=== PATIENT | female | born 1940 | race Asian ===

== ENCOUNTER → 2017-04-04 | Outpatient (CLI) | payer MEDICARE, OTHER ==
[~2017-04-04] MED LIST: ASPI-556 PO; CALC1TAB15 PO; DONE10TA43 PO; METF10002 PO; MULT1TAB70 PO; NIFE-4 PO; SIMV10TA6 PO; TELM1TAB6 PO
== END | disposition home or self-care (01) ==
LOC: RADPV 09:34
PROVIDERS: ATTEND Internal Medicine
DX: J98.11 Atelectasis (principal); I70.0 Atherosclerosis of aorta; M19.011 Primary osteoarthritis, right shoulder; M25.811 Other specified joint disorders, right shoulder
CPT/HCPCS: 71020

== ENCOUNTER → 2017-04-08 | Outpatient (CLI) | payer MEDICARE, OTHER | END | disposition home or self-care (01) | LOC: RADPV 07:59 | PROVIDERS: ATTEND Internal Medicine | DX: K80.20 Calculus of gallbladder without cholecystitis without obstruction (principal); K80.80 Other cholelithiasis without obstruction | CPT/HCPCS: 76700 ==

== ENCOUNTER → 2017-06-20 | Outpatient (CLI) | payer MEDICARE, OTHER | END | disposition home or self-care (01) | LOC: RADPV 11:01 | PROVIDERS: ATTEND Internal Medicine | DX: M25.812 Other specified joint disorders, left shoulder (principal) ==

== ENCOUNTER 2018-11-27 09:04 | Emergency (ER) | payer MEDICARE, OTHER ==
[~2018-11-27] VITALS: Ht 165.1 cm; Wt 63.6 kg
[~2018-11-27 09:04] MED LIST changes: +METF-446 PO; -METF10002 PO
[2018-11-27] MEDS ORDERED: APIX2.5T PO (09:34)
[2018-11-27] MEDS ORDERED: CLON.5 PO (09:34)
[2018-11-27] MEDS ORDERED: METO25 PO (09:34)
[2018-11-27 12:33] VITALS: BP 110/78
== END 2018-11-27 13:51 | disposition home or self-care (01) ==
LOC: EMS 09:07
DX: F03.90 Unspecified dementia, unspecified severity, without behavioral disturbance, psychotic disturbance, mood disturbance, and anxiety (principal); R45.1 Restlessness and agitation; E11.9 Type 2 diabetes mellitus without complications; E78.00 Pure hypercholesterolemia, unspecified; I10 Essential (primary) hypertension; Z85.038 Personal history of other malignant neoplasm of large intestine; Z79.899 Other long term (current) drug therapy; Z88.0 Allergy status to penicillin

== ENCOUNTER → 2018-12-10 | Outpatient (CLI) | payer MEDICARE, OTHER ==
[~2018-12-10] MED LIST changes: +APIX2.5T PO; +CLON.5 PO; +METO25 PO
== END | disposition home or self-care (01) ==
LOC: RADMN 12:52
PROVIDERS: ATTEND Internal Medicine
DX: I62.00 Nontraumatic subdural hemorrhage, unspecified (principal); I67.82 Cerebral ischemia; I67.2 Cerebral atherosclerosis
CPT/HCPCS: 70450

== ENCOUNTER 2019-01-26 16:38 | Emergency (ER) | payer MEDICARE, OTHER ==
[~2019-01-26] VITALS: Ht 157.5 cm; Wt 68.2 kg
[2019-01-26 17:42] LABS: BASOPHILS % (AUTO) 0.8 % (0.0-2.0); EOSINOPHILS % (AUTO) 0.4 % (1.0-6.0); HEMATOCRIT 34.8 % (36-46); HEMOGLOBIN 11.2 g/dL (12.0-16.0); LYMPHOCYTES # (AUTO) 1.4 K/uL (1.0-4.8); LYMPHOCYTES % (AUTO) 12.9 % (22.0-44.0); MEAN CORPUSCULAR HEMOGLOBIN 30.5 pg (26.0-34.0); MEAN CORPUSCULAR HGB CONC 32.3 G/dL (31.0-37.0); MEAN CORPUSCULAR VOLUME 95 fL (80-100); MONOCYTES % (AUTO) 8.9 % (2.0-9.0); NEUTROPHILS # (AUTO) 8.5 K/uL (1.8-7.7); PLATELET COUNT (AUTO) 336 K/uL (150-450); RED BLOOD CELL COUNT(AUTO) 3.68 MIL/uL (4.00-5.20); RED CELL DISTRIBUTION WIDTH 14.5 % (11.5-14.5)
[2019-01-26 17:54] LABS: CALCIUM, TOTAL 9.1 mg/dL (8.8-10.5); CREATININE 1.01 mg/dL (0.60-1.30); POTASSIUM 3.9 mmol/L (3.5-5.1)
[2019-01-26 17:55] LABS: PROTHROMBIN TIME 10.4 SEC (9.4-11.6)
[2019-01-26 18:00] LABS: GLUCOSE,POINT OF CARE 230 MG/DL (70-110)
[2019-01-26 18:02] LABS: LACTIC ACID 1.8 mmol/L (0.4-2.0)
[2019-01-26 18:20] LABS: ALBUMIN 2.7 g/dL (3.4-5.0); BILIRUBIN,TOTAL 0.7 mg/dL (0.1-1.0); TOTAL PROTEIN, SERUM 7.2 g/dL (6.4-8.2)
[2019-01-26 21:00] VITALS: BP 169/92
[2019-01-26 21:18] LABS: APPEARANCE,URINE CLOUDY (CLEAR); BILIRUBIN,URINE NEGATIVE (NEGATIVE); GLUCOSE, URINE (UA) 500 mg/dL (NEGATIVE); KETONES,URINE NEGATIVE (NEGATIVE); LEUKOCYTE ESTERASE ,URINE MODERATE (NEGATIVE); NITRATE,URINE NEGATIVE (NEGATIVE); OCCULT BLOOD,URINE SMALL (NEGATIVE); PH,URINE 5.5 (5.0-8.0); PROTEIN,URINE NEGATIVE (NEGATIVE); UROBILINOGEN,URINE 0.2 mg/dL (<=1.0)
[2019-01-26 21:30] LABS: BACTERIA,URINE Many /HPF (None Seen); RBC,URINE 0-2 /HPF (0-2); SQUAMOUS EPITHELIAL CELL,UR Few /LPF (None Seen); WBC,URINE >100 /HPF (0-5)
== END 2019-01-26 22:15 | disposition short-term general hospital (02) ==
LOC: EMS 16:39
DX: I62.00 Nontraumatic subdural hemorrhage, unspecified (principal); R50.9 Fever, unspecified; R10.30 Lower abdominal pain, unspecified; E11.9 Type 2 diabetes mellitus without complications; E78.00 Pure hypercholesterolemia, unspecified; I10 Essential (primary) hypertension; F03.90 Unspecified dementia, unspecified severity, without behavioral disturbance, psychotic disturbance, mood disturbance, and anxiety; Z85.038 Personal history of other malignant neoplasm of large intestine; Z98.890 Other specified postprocedural states; Z79.899 Other long term (current) drug therapy; Z88.0 Allergy status to penicillin
CPT/HCPCS: 70450; 83605; 87086; 93005; 99291

== ENCOUNTER → 2019-05-21 | Outpatient (CLI) | payer MEDICARE, OTHER ==
[~2019-05-21] MED LIST changes: -NIFE-4 PO; +NIFE-64 PO
== END | disposition home or self-care (01) ==
LOC: RADMN 10:04
PROVIDERS: ATTEND Neurological Surgery
DX: S06.5X0A Traumatic subdural hemorrhage without loss of consciousness, initial encounter (principal); X58.XXXA Exposure to other specified factors, initial encounter; Y93.89 Activity, other specified; Y92.89 Other specified places as the place of occurrence of the external cause; Y99.8 Other external cause status
CPT/HCPCS: 70450

== ENCOUNTER 2022-01-18 05:40 | Emergency (ER) | payer MEDICARE, OTHER ==
[~2022-01-18] VITALS: Ht 149.9 cm; Wt 47.0 kg
[~2022-01-18 05:40] MED LIST changes: -APIX2.5T PO; +ATOR10TA84 PO; +CALC-840 PO; -CALC1TAB15 PO; -CLON.5 PO; -DONE10TA43 PO; +LEVO250T75 PO; -NIFE-64 PO; -SIMV10TA6 PO; -TELM1TAB6 PO
[2022-01-18] MEDS ORDERED: ACETAMINOPHEN 500 MG TABLET PO ONE (06:30)
[2022-01-18 07:04] LABS: BASOPHILS % (AUTO) 0.5 % (0.0-2.0); EOSINOPHILS % (AUTO) 0.6 % (1.0-6.0); HEMATOCRIT 39.7 % (36-46); HEMOGLOBIN 13.3 g/dL (12.0-16.0); LYMPHOCYTES # (AUTO) 1.3 K/uL (1.0-4.8); LYMPHOCYTES % (AUTO) 16.5 % (22.0-44.0); MEAN CORPUSCULAR HEMOGLOBIN 30.4 pg (26.0-34.0); MEAN CORPUSCULAR HGB CONC 33.4 G/dL (31.0-37.0); MEAN CORPUSCULAR VOLUME 91 fL (80-100); MONOCYTES # (AUTO) 0.7 K/uL (0.1-1.0); MONOCYTES % (AUTO) 9.1 % (2.0-9.0); NEUTROPHILS # (AUTO) 5.8 K/uL (1.8-7.7); NEUTROPHILS % (AUTO) 73.3 % (40.0-70.0); PLATELET COUNT (AUTO) 256 K/uL (150-450); RED BLOOD CELL COUNT(AUTO) 4.37 MIL/uL (4.00-5.20); RED CELL DISTRIBUTION WIDTH 13.7 % (11.5-14.5)
[2022-01-18 07:13] LABS: CALCIUM, TOTAL 9.6 mg/dL (8.8-10.5); CREATININE 1.2 mg/dL (0.60-1.30); POTASSIUM 3.6 mmol/L (3.5-5.1)
[2022-01-18 07:19] LABS: ALBUMIN 3.2 g/dL (3.4-5.0); BILIRUBIN,TOTAL 1.2 mg/dL (0.1-1.0); TOTAL PROTEIN, SERUM 8.2 g/dL (6.4-8.2)
[2022-01-18 09:59] VITALS: BP 122/60
== END 2022-01-18 11:06 | disposition home or self-care (01) ==
LOC: EMS 05:40
DX: U07.1 COVID-19 (principal); I10 Essential (primary) hypertension; E11.9 Type 2 diabetes mellitus without complications; E78.00 Pure hypercholesterolemia, unspecified; Z88.0 Allergy status to penicillin; Z79.899 Other long term (current) drug therapy
CPT/HCPCS: 71045; 80053; 85025; 93005; 99285; 36415-L1; 36415-TC

== ENCOUNTER 2024-03-18 18:22 | Inpatient (IN) | payer MEDICARE, OTHER ==
[~2024-03-18] VITALS: Ht 152.4 cm; Wt 41.4 kg
[~2024-03-18 18:22] MED LIST changes: +ACET-784 PO; -ASPI-556 PO; -ATOR10TA84 PO; +ATOR40TA71 PO; +BISA-72 PO; -CALC-840 PO; +INSU100V SQ; +LEVO-72 PO; -LEVO250T75 PO; -METF-446 PO; -MULT1TAB70 PO; +PANT-31 PO
[2024-03-18] MEDS ORDERED: 0.9% SODIUM CHLORIDE 10 ML SYRINGE IVP PRN (18:45)
[2024-03-18] MEDS ORDERED: HYDR25TA84 PO (18:54)
[2024-03-18] MEDS: CefTRIAXone 1 GM/DEXTROSE 50 ML IV ONE (18:58)
[2024-03-18] MEDS: SODIUM CHLORIDE 0.9% 1,300 ML IV ONE (18:58)
[2024-03-18 19:20] LABS: BASOPHILS % (AUTO) 0.2 % (0.0-2.0); EOSINOPHILS % (AUTO) 0 % (1.0-6.0); HEMATOCRIT 35.7 % (36-46); HEMOGLOBIN 11.7 g/dL (12.0-16.0); LYMPHOCYTES # (AUTO) 1.1 K/uL (1.0-4.8); LYMPHOCYTES % (AUTO) 5.6 % (22.0-44.0); MEAN CORPUSCULAR HEMOGLOBIN 29.2 pg (26.0-34.0); MEAN CORPUSCULAR HGB CONC 32.8 G/dL (31.0-37.0); MEAN CORPUSCULAR VOLUME 89 fL (80-100); MONOCYTES # (AUTO) 0.9 K/uL (0.1-1.0); MONOCYTES % (AUTO) 5.1 % (2.0-9.0); NEUTROPHILS # (AUTO) 16.7 K/uL (1.8-7.7); PLATELET COUNT (AUTO) 556 K/uL (150-450); RED BLOOD CELL COUNT(AUTO) 4.01 MIL/uL (4.00-5.20); RED CELL DISTRIBUTION WIDTH 14.8 % (11.5-14.5); WHITE BLOOD COUNT (AUTO) 18.7 K/uL (4.5-11.0)
[2024-03-18 19:21] LABS: NEUTROPHILS % (AUTO) 89.1 % (40.0-70.0)
[2024-03-18 19:34] LABS: APPEARANCE,URINE CLEAR (CLEAR); BILIRUBIN,URINE NEGATIVE (NEGATIVE); COLOR,URINE YELLOW (YELLOW); GLUCOSE, URINE (UA) >=1000 mg/dL (NEGATIVE); KETONES,URINE NEGATIVE (NEGATIVE); LEUKOCYTE ESTERASE ,URINE NEGATIVE (NEGATIVE); NITRATE,URINE NEGATIVE (NEGATIVE); OCCULT BLOOD,URINE NEGATIVE (NEGATIVE); PH,URINE 6.5 (5.0-8.0); PROTEIN,URINE 30-70 mg/dL (NEGATIVE); SPECIFIC GRAVITIY, URINE 1.026 (1.003-1.030); UROBILINOGEN,URINE <=1.0 mg/dL (<=1.0)
[2024-03-18 19:34] LABS: COVID AG,FIA SOURCE NASAL SWAB
[2024-03-18 19:40] LABS: TROPONIN I-HIGH SENSITIVITY 109 ng/L (<51)
[2024-03-18 19:43] LABS: ANION GAP 15 mmol/L (8-16); CARBON DIOXIDE 23 mmol/L (22-29); CHLORIDE 97 mmol/L (98-107); CREATININE 1.29 mg/dL (0.60-1.30); GLOMERULAR FILTR. RATE CALC 39 mL/min (>60); GLUCOSE,RANDOM 333 mg/dL (70-110); POTASSIUM 3.9 mmol/L (3.5-5.1); SODIUM SERUM 135 mmol/L (136-145); UREA NITROGEN, BLOOD 24 mg/dL (7-18)
[2024-03-18 19:46] LABS: BACTERIA,URINE Few /HPF (None Seen); RBC,URINE 0-2 /HPF (0-2); SQUAMOUS EPITHELIAL CELL,UR Moderate /LPF (None Seen)
[2024-03-18 19:48] LABS: ALANINE AMINOTRANSFERASE 31 U/L (12-78); ALBUMIN 2.7 g/dL (3.4-5.0); ALKALINE PHOSPHATASE 81 U/L (46-116); ASPARTATE AMINOTRANSFERASE 20 U/L (15-37); LIPASE 75 U/L (16-77); TOTAL PROTEIN, SERUM 8.2 g/dL (6.4-8.2)
[2024-03-18 19:54] LABS: LACTIC ACID 3.6 mmol/L (0.4-2.0)
[2024-03-18 19:57] LABS: RBC MORPHOLOGY COMMENT NORMAL RBC MORPH
[2024-03-18 20:10] LABS: INFLUENZA TYPE A NEGATIVE FOR TYPE A (NEGATIVE); INFLUENZA TYPE B NEGATIVE FOR TYPE B (NEGATIVE); SARS-COV2 (COVID) ANTIGEN,FIA Negative (Negative)
[2024-03-18] MEDS: *CLINICAL-LEVOFLOXACIN IVPB DOSING CLINICAL ONE (22:12)
[2024-03-18] MEDS ORDERED: HYDROCODONE/ACETAMINOPHEN 5-325 MG TABLET PO PRN (22:15)
[2024-03-18] MEDS ORDERED: BISACODYL 10 MG RECTAL RECTAL SUPPOSITORY PR PRN (22:15)
[2024-03-18] MEDS ORDERED: ONDANSETRON HCL 4 MG/2 ML VIAL IVP PRN (22:15)
[2024-03-18] MEDS ORDERED: MAGNESIUM HYDROXIDE SUSPENSION 30 ML UDCUP PO PRN (22:15)
[2024-03-18] MEDS ORDERED: DEXTROSE 50%-WATER 25 GM/50 ML SYRINGE IVP PRN (22:15)
[2024-03-18] MEDS ORDERED: ZOLPIDEM TARTRATE 5 MG TABLET PO PRN (22:15)
[2024-03-18] MEDS: LEVOFLOXACIN 750 MG/D5% WATER 150 ML IV SCH (22:57)
[2024-03-18] MEDS: HEPARIN SODIUM,PORCINE 5,000 UNITS/ML VIAL SQ SCH (23:00)
[2024-03-19] MEDS: SODIUM CHLORIDE 0.9% 1,000 ML IV SCH (00:02)
[2024-03-19 04:47] VITALS: BP 159/56; PULSE 116; RESP 16; TEMP 99.3; O2SAT 98
[2024-03-19] MEDS: INSULIN LISPRO 100 UNITS/ML SQ PRN (06:19)
[2024-03-19 07:07] LABS: BASOPHILS % (AUTO) 0.1 % (0.0-2.0); EOSINOPHILS % (AUTO) 0 % (1.0-6.0); HEMATOCRIT 33.3 % (36-46); LYMPHOCYTES # (AUTO) 0.8 K/uL (1.0-4.8); LYMPHOCYTES % (AUTO) 5.1 % (22.0-44.0); MEAN CORPUSCULAR HEMOGLOBIN 29.5 pg (26.0-34.0); MEAN CORPUSCULAR HGB CONC 33.1 G/dL (31.0-37.0); MEAN CORPUSCULAR VOLUME 89 fL (80-100); MONOCYTES # (AUTO) 0.6 K/uL (0.1-1.0); MONOCYTES % (AUTO) 3.5 % (2.0-9.0); NEUTROPHILS # (AUTO) 15.1 K/uL (1.8-7.7); PLATELET COUNT (AUTO) 463 K/uL (150-450); RED BLOOD CELL COUNT(AUTO) 3.73 MIL/uL (4.00-5.20); RED CELL DISTRIBUTION WIDTH 15.1 % (11.5-14.5); WHITE BLOOD COUNT (AUTO) 16.5 K/uL (4.5-11.0)
[2024-03-19 07:21] LABS: CALCIUM, TOTAL 8.6 mg/dL (8.8-10.5); CREATININE 1.01 mg/dL (0.60-1.30); POTASSIUM 3.3 mmol/L (3.5-5.1)
[2024-03-19 07:25] LABS: NEUTROPHILS % (AUTO) 91.3 % (40.0-70.0)
[2024-03-19 07:41] LABS: GLUCOMETER DEV NAME(LOC) 5N.2C; GLUCOSE,POINT OF CARE 338 MG/DL (70-110)
[2024-03-19] MEDS: HYDROCODONE/ACETAMINOPHEN 5-325 MG TABLET PO PRN (07:48)
[2024-03-19] MEDS: DOCUSATE SODIUM 100 MG CAPSULE PO SCH (07:48)
[2024-03-19] MEDS: ATORVASTATIN CALCIUM 40 MG TABLET PO SCH (07:48)
[2024-03-19] MEDS: PANTOPRAZOLE SODIUM 40 MG DR TABLET PO SCH (07:48)
[2024-03-19] MEDS: MORPHINE SULFATE 2 MG/ML SYRINGE IVP PRN (08:18)
[2024-03-19 08:44] VITALS: BP 165/79; PULSE 122; RESP 18; TEMP 99.9; O2SAT 98
[2024-03-19 12:16] VITALS: BP 168/73; PULSE 120; RESP 18; TEMP 99.5; O2SAT 96
[2024-03-19] MEDS: AmLODIPine BESYLATE 10 MG TABLET PO SCH (14:12)
[2024-03-19] MEDS: POTASSIUM CHLORIDE 20 MEQ ER TABLET PO PRN (14:13)
[2024-03-19 15:36] VITALS: BP 156/74; PULSE 122; RESP 18; TEMP 98.7; O2SAT 98
[2024-03-19] MEDS: MetroNIDAZOLE 500 MG/NACL 100 ML IV SCH (16:04)
[2024-03-19 20:21] LABS: GLUCOMETER DEV NAME(LOC) 5N.2C; GLUCOSE,POINT OF CARE 266 MG/DL (70-110)
[2024-03-19 20:21] LABS: GLUCOMETER DEV NAME(LOC) 5N.2C; GLUCOSE,POINT OF CARE 203 MG/DL (70-110)
[2024-03-19] MEDS: POTASSIUM CHL 10 MEQ/WATER 50 ML IV PRN (21:04)
[2024-03-19 22:31] LABS: GLUCOMETER DEV NAME(LOC) 5N.1D; GLUCOSE,POINT OF CARE 149 MG/DL (70-110)
[2024-03-20 00:29] VITALS: BP 146/87; PULSE 119; RESP 17; TEMP 98.3; O2SAT 97
[2024-03-20 05:34] VITALS: BP 141/82; PULSE 114; RESP 18; TEMP 98.8; O2SAT 96
[2024-03-20 06:30] LABS: BASOPHILS % (AUTO) 0.1 % (0.0-2.0); EOSINOPHILS % (AUTO) 0 % (1.0-6.0); HEMATOCRIT 32.2 % (36-46); HEMOGLOBIN 10.4 g/dL (12.0-16.0); LYMPHOCYTES # (AUTO) 0.7 K/uL (1.0-4.8); LYMPHOCYTES % (AUTO) 4.4 % (22.0-44.0); MEAN CORPUSCULAR HEMOGLOBIN 28.9 pg (26.0-34.0); MEAN CORPUSCULAR HGB CONC 32.2 G/dL (31.0-37.0); MEAN CORPUSCULAR VOLUME 90 fL (80-100); MONOCYTES # (AUTO) 0.5 K/uL (0.1-1.0); MONOCYTES % (AUTO) 2.8 % (2.0-9.0); NEUTROPHILS # (AUTO) 15.5 K/uL (1.8-7.7); PLATELET COUNT (AUTO) 396 K/uL (150-450); RED BLOOD CELL COUNT(AUTO) 3.59 MIL/uL (4.00-5.20); RED CELL DISTRIBUTION WIDTH 15.2 % (11.5-14.5); WHITE BLOOD COUNT (AUTO) 16.7 K/uL (4.5-11.0)
[2024-03-20 06:41] LABS: ANION GAP 12 mmol/L (8-16); CALCIUM, TOTAL 8.6 mg/dL (8.8-10.5); CARBON DIOXIDE 21 mmol/L (22-29); CHLORIDE 106 mmol/L (98-107); CREATININE 0.84 mg/dL (0.60-1.30); GLOMERULAR FILTR. RATE CALC > 60 mL/min (>60); GLUCOSE,RANDOM 265 mg/dL (70-110); POTASSIUM 3.9 mmol/L (3.5-5.1); SODIUM SERUM 139 mmol/L (136-145); UREA NITROGEN, BLOOD 20 mg/dL (7-18)
[2024-03-20 07:05] LABS: NEUTROPHILS % (AUTO) 92.7 % (40.0-70.0)
[2024-03-20 07:11] VITALS: BP 141/82; PULSE 113; RESP 19; TEMP 98.3; O2SAT 95
[2024-03-20 11:30] VITALS: BP 130/77; PULSE 98; RESP 18; TEMP 98.2; O2SAT 95
[2024-03-20 13:00] LABS: GLUCOMETER DEV NAME(LOC) 5N.1D; GLUCOSE,POINT OF CARE 247 MG/DL (70-110)
[2024-03-20 14:25] LABS: GLUCOMETER DEV NAME(LOC) 5N.2C; GLUCOSE,POINT OF CARE 266 MG/DL (70-110)
[2024-03-20 15:20] VITALS: BP 145/80; PULSE 120; RESP 19; TEMP 98; O2SAT 94
[2024-03-20 17:00] VITALS: BP 139/82; PULSE 120; RESP 18; TEMP 99.4; O2SAT 97
[2024-03-20] MEDS: ACETAMINOPHEN 325 MG TABLET PO PRN (17:08)
[2024-03-20 17:40] LABS: GLUCOMETER DEV NAME(LOC) 5N.1D; GLUCOSE,POINT OF CARE 238 MG/DL (70-110)
== END 2024-03-20 19:00 | disposition short-term general hospital (02) | DRG 871 ==
LOC: EMS 18:26 → EDH 22:16 → 5N 03-19 04:20
PROVIDERS: ADMIT Internal Medicine; ATTEND Internal Medicine
DX: A41.9 Sepsis, unspecified organism (principal); E43 Unspecified severe protein-calorie malnutrition; G93.41 Metabolic encephalopathy; E87.1 Hypo-osmolality and hyponatremia; K81.0 Acute cholecystitis; E87.20 Acidosis, unspecified; I48.92 Unspecified atrial flutter; Z68.1 Body mass index [BMI] 19.9 or less, adult; Z20.822 Contact with and (suspected) exposure to COVID-19; E11.22 Type 2 diabetes mellitus with diabetic chronic kidney disease; E78.5 Hyperlipidemia, unspecified; L02.92 Furuncle, unspecified; E11.65 Type 2 diabetes mellitus with hyperglycemia; J98.4 Other disorders of lung; I12.9 Hypertensive chronic kidney disease with stage 1 through stage 4 chronic kidney disease, or unspecified chronic kidney disease; N18.9 Chronic kidney disease, unspecified; K21.9 Gastro-esophageal reflux disease without esophagitis; R79.89 Other specified abnormal findings of blood chemistry; F03.90 Unspecified dementia, unspecified severity, without behavioral disturbance, psychotic disturbance, mood disturbance, and anxiety; Z88.0 Allergy status to penicillin; Z85.038 Personal history of other malignant neoplasm of large intestine; Z90.49 Acquired absence of other specified parts of digestive tract; Z79.899 Other long term (current) drug therapy
CPT/HCPCS: 51702; 71045; 71250; 72192; 74150; 76700; 80048; 80053; 81001; 82009; 82962; 83605; 83690; 84132; 84145; 84484; 85025; 85610; 87040; 87081; 87481; 87804; 92610; 93005; 99285; G0378; J0696; J1644; J1956; J2270; J2405; J3480; J3490; J7030; 36415-L1; 36415-TC

== ENCOUNTER 2025-05-23 19:27 | Inpatient (IN) | payer MEDICARE, OTHER ==
[~2025-05-23] VITALS: Ht 149.9 cm; Wt 34.0 kg
[~2025-05-23 19:27] MED LIST changes: -ACET-784 PO; +ASPI-1450 PO; +ATOR10TA PO; -ATOR40TA71 PO; -BISA-72 PO; +CHOL25TA4 PO; +CLIN300C58 PO; +DIVA125T32 PO; +DONE-52 PO; +EMPA10TA3 PO; +LEVO750T68 PO; +METF-1211 PO; -METO25 PO; +METR500 PO; -PANT-31 PO; +TELM1TAB6 PO
[2025-05-23] MEDS ORDERED: ACETAMINOPHEN 325 MG TABLET PO PRN (23:15)
[2025-05-23] MEDS ORDERED: ONDANSETRON HCL 4 MG/2 ML VIAL IVP PRN (23:15)
[2025-05-23] MEDS ORDERED: DEXTROSE 50%-WATER 25 GM/50 ML SYRINGE IVP PRN (23:30)
[2025-05-23] MEDS: DIVALPROEX SODIUM 125 MG DR TABLET PO SCH (23:48)
[2025-05-24] VITALS (7 sets, daily range): BP systolic 110–162; BP diastolic 50–65; PULSE 57–73; RESP 16–20; TEMP 97.3–98.2; O2SAT 98–100
[2025-05-24 00:23] LABS: PLATELET COUNT (AUTO) 279 K/uL (150-450); RED BLOOD CELL COUNT(AUTO) 3.60 MIL/uL (4.00-5.20); RED CELL DISTRIBUTION WIDTH 15.6 % (11.5-14.5); WHITE BLOOD COUNT (AUTO) 7.4 K/uL (4.5-11.0)
[2025-05-24] MEDS: RINGERS SOLUTION,LACTATED 1,000 ML IV SCH (00:24)
[2025-05-24 00:36] LABS: CALCIUM, TOTAL 8.9 mg/dL (8.8-10.5); CREATININE 0.67 mg/dL (0.60-1.30); GLOMERULAR FILTR. RATE CALC > 60 mL/min (>60); GLUCOSE,RANDOM 124 mg/dL (70-110); SODIUM SERUM 133 mmol/L (136-145); UREA NITROGEN, BLOOD 19 mg/dL (7-18)
[2025-05-24 06:41] LABS: SODIUM SERUM 135 mmol/L (136-145)
[2025-05-24 06:42] LABS: CALCIUM, TOTAL 9.4 mg/dL (8.8-10.5); CREATININE 0.58 mg/dL (0.60-1.30); GLOMERULAR FILTR. RATE CALC > 60 mL/min (>60); GLUCOSE,RANDOM 100 mg/dL (70-110); UREA NITROGEN, BLOOD 17 mg/dL (7-18)
[2025-05-24 06:59] LABS: PLATELET COUNT (AUTO) 278 K/uL (150-450); RED BLOOD CELL COUNT(AUTO) 4.24 MIL/uL (4.00-5.20); RED CELL DISTRIBUTION WIDTH 15.5 % (11.5-14.5); WHITE BLOOD COUNT (AUTO) 5.7 K/uL (4.5-11.0)
[2025-05-24 07:10] LABS: GLUCOMETER DEV NAME(LOC) 5N.1D; GLUCOSE,POINT OF CARE 105 MG/DL (70-110)
[2025-05-24] MEDS: TELMISARTAN 40 MG TABLET PO SCH (08:20)
[2025-05-24] MEDS: EMPAGLIFLOZIN 10 MG TABLET PO SCH (08:21)
[2025-05-24] MEDS: DONEPEZIL HCL 5 MG TABLET PO SCH (08:21)
[2025-05-24] MEDS: ASPIRIN 81 MG CHEWABLE TABLET PO SCH (08:21)
[2025-05-24] MEDS: DOCUSATE SODIUM 100 MG CAPSULE PO SCH (08:21)
[2025-05-24] MEDS: ATORVASTATIN CALCIUM 10 MG TABLET PO SCH (08:22)
[2025-05-24 12:01] LABS: GLUCOMETER DEV NAME(LOC) 5N.1D; GLUCOSE,POINT OF CARE 132 MG/DL (70-110)
[2025-05-24 12:45] LABS: APPEARANCE,URINE CLEAR (CLEAR); GLUCOSE, URINE (UA) >=1000 mg/dL (NEGATIVE); LEUKOCYTE ESTERASE ,URINE NEGATIVE (NEGATIVE); NITRATE,URINE NEGATIVE (NEGATIVE); OCCULT BLOOD,URINE TRACE (NEGATIVE); SPECIFIC GRAVITIY, URINE 1.009 (1.003-1.030)
[2025-05-24 13:18] LABS: SQUAMOUS EPITHELIAL CELL,UR Few /LPF (None Seen)
[2025-05-24] MEDS: ESZOPICLONE 2 MG TABLET PO SCH (21:20)
[2025-05-24] MEDS: INSULIN LISPRO 100 UNITS/ML SQ PRN (21:22)
[2025-05-24 22:56] LABS: GLUCOMETER DEV NAME(LOC) 5S.2E; GLUCOSE,POINT OF CARE 119 MG/DL (70-110)
[2025-05-24 22:56] LABS: GLUCOMETER DEV NAME(LOC) 5S.2E; GLUCOSE,POINT OF CARE 165 MG/DL (70-110)
[2025-05-25 04:53] VITALS: BP 120/55; PULSE 59; RESP 18; TEMP 97.6; O2SAT 100
[2025-05-25 06:41] LABS: GLUCOMETER DEV NAME(LOC) 5S.2E; GLUCOSE,POINT OF CARE 87 MG/DL (70-110)
[2025-05-25 07:12] LABS: PLATELET COUNT (AUTO) 241 K/uL (150-450); RED BLOOD CELL COUNT(AUTO) 4.41 MIL/uL (4.00-5.20); RED CELL DISTRIBUTION WIDTH 16.2 % (11.5-14.5); WHITE BLOOD COUNT (AUTO) 6.6 K/uL (4.5-11.0)
[2025-05-25 07:29] LABS: CALCIUM, TOTAL 9.6 mg/dL (8.8-10.5); CREATININE 0.59 mg/dL (0.60-1.30); GLOMERULAR FILTR. RATE CALC > 60 mL/min (>60); GLUCOSE,RANDOM 86 mg/dL (70-110); SODIUM SERUM 137 mmol/L (136-145); UREA NITROGEN, BLOOD 19 mg/dL (7-18)
[2025-05-25 09:15] VITALS: BP 146/69; PULSE 80; RESP 18; TEMP 97.6; O2SAT 99
[2025-05-25 12:11] LABS: GLUCOMETER DEV NAME(LOC) 5S.2E; GLUCOSE,POINT OF CARE 122 MG/DL (70-110)
[2025-05-25 12:29] VITALS: BP 132/67; PULSE 79; RESP 18; TEMP 97.7; O2SAT 99
[2025-05-25] MEDS ORDERED: AMLO-257 PO (14:19)
[2025-05-25] MEDS ORDERED: ESZO2TAB46 PO (14:19)
[2025-05-25 17:20] LABS: GLUCOMETER DEV NAME(LOC) 5S.1E; GLUCOSE,POINT OF CARE 132 MG/DL (70-110)
== END 2025-05-25 20:30 | disposition home or self-care (01) | DRG 604 ==
LOC: EMS 19:27 → EDH 23:13 → 5S 05-24 01:18
PROVIDERS: ADMIT Internal Medicine; ATTEND Internal Medicine
DX: S00.03XA Contusion of scalp, initial encounter (principal); I62.03 Nontraumatic chronic subdural hemorrhage; F03.C0 Unspecified dementia, severe, without behavioral disturbance, psychotic disturbance, mood disturbance, and anxiety; E11.9 Type 2 diabetes mellitus without complications; I10 Essential (primary) hypertension; R41.89 Other symptoms and signs involving cognitive functions and awareness; E78.00 Pure hypercholesterolemia, unspecified; R00.1 Bradycardia, unspecified; W18.09XA Striking against other object with subsequent fall, initial encounter; Y93.89 Activity, other specified; Y92.89 Other specified places as the place of occurrence of the external cause; Y99.8 Other external cause status; Z82.49 Family history of ischemic heart disease and other diseases of the circulatory system; Z88.0 Allergy status to penicillin; Z83.3 Family history of diabetes mellitus; Z85.038 Personal history of other malignant neoplasm of large intestine
CPT/HCPCS: 70450; 70551; 80048; 81001; 82962; 83735; 85025; 85610; 92610; 99285; G0378; J1630; J7120